=== PATIENT | male | born 1935 | race African-American/Black ===

== ENCOUNTER 2017-01-18 22:53 | Emergency (ER) | payer MEDICARE ==
[~2017-01-18] VITALS: Ht 175.3 cm; Wt 111.1 kg
[2017-01-18] MEDS ORDERED: GLYBURIDE5 MG PO (23:05)
[2017-01-18] MEDS ORDERED: METFORMIN HCL500 M1 ORAL (23:05)
[2017-01-18 23:14] VITALS: BP 152/89
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
[2017-01-18] MEDS ORDERED: TYLENOL325 MG ORAL (23:54)
[2017-01-19 00:24] VITALS: BP 139/90
--- NOTE | 2017-01-19 13:35 | Diagnostic Imaging Report ---
Indications: Altered mental status Technique: Spiral acquisitions obtained through the brain. Angled axial and coronal 5 x 5 mm slices were reconstructed. Total dose length product 1376 mGycm. CTDI vol(s) 7 mGy. Dose reduction achieved using automated exposure control Comparison: None Findings: There is age-related enlargement of the ventricles and extra axial CSF spaces. No acute hemorrhage or edema. No mass effect or midline shift. Normal conklin-white differentiation. There is an old lacunar infarct in the left lentiform nucleus posteriorly. There is evidence of prior left-sided cataract surgery. The visualized sinuses are clear. The mastoids are clear. The calvarium is intact. Impression: Age-related changes Old left basal ganglia lacunar infarct Negative for acute intracranial bleed or mass effect This agrees with the preliminary interpretation provided overnight by [facility]. The CT scanner at [facility] is accredited by the [employer] and the scans are performed using protocols designed to limit radiation exposure to as low as reasonably achievable to attain images of sufficient resolution adequate for diagnostic evaluation.
== END 2017-01-19 00:20 | disposition home or self-care (01) ==
LOC: EDBD 22:53 → EMR 23:15
DX: R51 Headache (principal); R41.82 Altered mental status, unspecified; E11.9 Type 2 diabetes mellitus without complications
CPT/HCPCS: 70450; 99284